=== PATIENT | female | born 1955 | race African-American/Black ===

== ENCOUNTER 2024-01-14 10:10 | Emergency (ER) | payer MEDICARE, MEDICAID ==
[~2024-01-14] VITALS: Ht 188 cm; Wt 82.0 kg
[2024-01-14 10:14] VITALS: O2SAT 99
[2024-01-14] MEDS: SODIUM CHLORIDE 0.9% 500 ML IV ONE (10:53)
[2024-01-14 10:58] LABS: BASOPHILS % 0.8 % (0.0-2.0); EOSINOPHILS % 1.8 % (0.0-5.0); HEMATOCRIT. 39.1 % (36.0-48.0); HEMOGLOBIN. 13.1 g/dL (12.0-16.0); LYMPHOCYTES % 20.9 % (20.0-50.0); MEAN CORPUSCULAR HEMOGLOBIN 28.7 pg (28.0-32.0); MEAN CORPUSCULAR HGB CONC 33.4 g/dL (31.0-37.0); MEAN CORPUSCULAR VOLUME 86.1 fL (81.0-99.0); MEAN PLATELET VOLUME 8.9 fl (7.4-10.4); NEUTROPHILS % 65.5 % (40.0-76.0); PLATELET 140 x1000/uL (130-400); RED BLOOD CELL COUNT 4.54 mill/uL (4.2-5.4); WHITE BLOOD COUNT 3.9 x1000/uL (4.5-11.0)
[2024-01-14 11:06] LABS: CHLORIDE 105 mEq/L (98-107); POTASSIUM 4.6 mEq/L (3.5-5.1); SODIUM 140 mEq/L (136-145)
[2024-01-14 11:07] LABS: CARBON DIOXIDE 30 mEq/L (21-32)
[2024-01-14 11:10] LABS: INR 1.6; PROTHROMBIN TIME 17.1 sec (9.6-11.0)
[2024-01-14 11:12] LABS: GLUCOSE 153 mg/dL (70-105); UREA NITROGEN BLOOD 49 mg/dL (9-23)
[2024-01-14 11:13] LABS: TROPONIN I HIGH SENSITIVITY 14 ng/L (3.0-34)
[2024-01-14 11:30] LABS: CALCIUM 9.9 mg/dL (8.7-10.4)
[2024-01-14 11:34] LABS: CREATININE 2.2 mg/dL (0.6-1.0)
[2024-01-14 12:24] LABS: CLARITY URINE CLEAR (CLEAR); COLOR URINE YELLOW (YELLOW); GLUCOSE URINE 2+ (NEGATIVE); KETONES URINE NEGATIVE (NEGATIVE); LEUKOCYTE ESTERASE URINE NEGATIVE (NEGATIVE); NITRITE URINE NEGATIVE (NEGATIVE); OCCULT BLOOD URINE NEGATIVE (NEGATIVE); PH URINE 6.5 (4.5-8.0); PROTEIN URINE NEGATIVE (NEGATIVE); UROBILINOGEN URINE 0.2 E.U./dL (0.2-1.0)
[2024-01-14 12:38] LABS: HYALINE CASTS URINE 0-5 /lpf; MUCUS URINE 1+ /lpf (< = 2+); SQUAMOUS EPITHELIAL CELL URINE 1+ /lpf (RARE/1+)
[2024-01-14 12:40] LABS: BACTERIA URINE TRACE; RBC URINE 0-2 /hpf (0-2); WBC URINE NONE SEEN /hpf (0-2)
[2024-01-14] MEDS ORDERED: AMOX1TAB16 MT (13:26)
[2024-01-14] MEDS ORDERED: DOXY100T2 MT (13:26)
[2024-01-14 13:40] VITALS: BP 121/69; PULSE 64; RESP 16; TEMP 98.4
[2024-01-14] MEDS ORDERED: MEROPENEM 1G/100ML 100 ML IV SCH (14:00)
== END 2024-01-14 13:49 | disposition home or self-care (01) ==
LOC: ER 10:10 → CANBEDREQ 21:28
DX: J18.9 Pneumonia, unspecified organism (principal); R07.89 Other chest pain; I11.0 Hypertensive heart disease with heart failure; I50.9 Heart failure, unspecified; F31.9 Bipolar disorder, unspecified; E11.9 Type 2 diabetes mellitus without complications
CPT/HCPCS: 99285; 96360; 71045; 80048; 81003; 83880; 83605; 85025; 85610; 84484; 36415; J7030; J2185

== ENCOUNTER 2024-02-10 12:23 | Emergency (ER) | payer MEDICARE, MEDICAID ==
[~2024-02-10] VITALS: Ht 185.4 cm; Wt 100.0 kg
[~2024-02-10 12:23] MED LIST: AMOX1TAB16 MT; DOXY100T2 MT
[2024-02-10 12:30] VITALS: O2SAT 98
[2024-02-10 13:15] VITALS: BP 133/78; PULSE 69; RESP 14; TEMP 98.4
== END 2024-02-10 13:45 | disposition left against medical advice (07) ==
LOC: ER 12:32
DX: R41.82 Altered mental status, unspecified (principal); R07.89 Other chest pain; I11.0 Hypertensive heart disease with heart failure; I50.9 Heart failure, unspecified; E11.9 Type 2 diabetes mellitus without complications; Z53.21 Procedure and treatment not carried out due to patient leaving prior to being seen by health care provider; Z88.6 Allergy status to analgesic agent; Z88.2 Allergy status to sulfonamides; Z98.890 Other specified postprocedural states
CPT/HCPCS: 93005; 99283